=== PATIENT | male | born 1950 | race Caucasian/White ===

== ENCOUNTER 2019-07-21 20:42 | Observation (INO) | payer MEDICARE ==
[~2019-07-21] VITALS: Ht 167.6 cm; Wt 88.1 kg
--- NOTE | 2019-07-21 21:05 | NUR ---
PATIENT ARRIVES WITH TRANSPORTERS VIA WHEELCHAIR, IS ABLE TO WALK TO HIS BED ICU BED 5 WITHOUT DIFFICULTY. DEIES CHEST PAIN. NO SOB NOTED. NO OTHER COMPLAINTS. ALERT AND ORIENTED X4. ON RA. AFEBRILE. ANSWRES ALL QUESTIONS FOLLOWS ALL COMMANDS. ADMISSION COMPLETED. POC FOR TONIGHT DISCUSSED, PATIENT AGREES. SELF REPOSITIONS. RFA 18 G INTACT AND FLUSHES, SALINE LOCKED. NKA. AMBULATORY. SELF REPOSITIONS NEEDED. CALL LIGHT WITHIN REACH. WILL CONTINUE TO MONITOR.
[2019-07-21 21:15] VITALS: BP 177/84
[2019-07-21 21:30] VITALS: BP 172/85
[2019-07-21 21:45] VITALS: BP 184/88
[2019-07-21 22:00] VITALS: BP 166/88
--- NOTE | 2019-07-21 22:11 | NUR ---
SPOKE TO ON THE PHONE TO ASK FOR CURRENT LIST OF MEDS, MEDS TOLD OVER PHONE AND LIST WRITTEN DOWN.
[2019-07-21] MEDS ORDERED: ASPIRIN81 MG PO (22:12)
[2019-07-21] MEDS ORDERED: TOPROL XL25 MG PO (22:13)
[2019-07-21] MEDS ORDERED: LISINOPRIL10 MG PO (22:14)
[2019-07-21] MEDS ORDERED: METFORMIN850 MG PO (22:14)
[2019-07-21 22:15] VITALS: BP 176/74
[2019-07-21] MEDS ORDERED: CIALIS10 M1 PO (22:15)
[2019-07-21] MEDS ORDERED: FLONASE SE27.5 MCG/S (22:16)
[2019-07-21] MEDS ORDERED: JANUVIA50 MG PO (22:17)
[2019-07-21] MEDS ORDERED: PROTONIX40 M2 PO (22:17)
[2019-07-21] MEDS ORDERED: SIMVASTATIN20 MG PO (22:17)
[2019-07-21] MEDS ORDERED: NOVOLIN 70/30 INNLT SC (22:18)
[2019-07-21] MEDS ORDERED: TESSALON PERLE100 MG PO (22:19)
--- NOTE | 2019-07-21 22:36 | NUR ---
CALLED AND SPOKE TO DR SHEETS TO NOTIFY OF PATIENT'S BP'S, BS, AND HOME MEDICATIONS, NEW ORDERS RECEIVED.
--- NOTE | 2019-07-21 22:55 | NUR ---
PATIENT WEIGHED ON STANDING SCALE. BP 190/119 MMHG, MONITOR ALARMS, PATIENT COMMENTS, "HAVE YOU SEEN MY BLOOD PRESSURE, YOUR NOT PAYING ATTENTION TO IT," AFTER I HAD EXPLAINED TO HIM I HAVE SPOKEN TO THE DR ALREADY AND RECEIVED NEW ORDERS FOR MEDICATIONS REGARDING HIS BLOOD PRESSURE AND BLOOD SUGAR.
[2019-07-21 23:00] VITALS: BP 191/95
--- NOTE | 2019-07-21 23:00 | NUR ---
PATIENT GETS UP FROM BED, HAS TAKEN TELEMETRY, PULSE OX, AND BP CUFF OFF. IS CONFUSED. PATIENT REORIENTED AND REASSURED. GOES TO THE BATHROOM, WASHES HER TEETH. LAYS BACK IN BED. COMPLAINS ABOUT MONITOR ALARMING, BATHROOM LIGHT ON. HAVE EXPLAINED TO WHY THE MONITOR IS ALARMING. CALL LIGHT WITHIN REACH.
--- NOTE | 2019-07-21 23:42 | NUR ---
BP MEDIACTION GIVEN TO PATIENT EXPLAINED WHY HE IS GETTING MEDIACTIION AND EXPLAINED TO HIM AGAIN I HAVE SPOKEN TO DR SHEETS ABOUT HIS BP AND CURRENT ORDERS.
[2019-07-22] VITALS (7 sets, daily range): BP systolic 136–164; BP diastolic 71–80
--- NOTE | 2019-07-22 02:01 | NUR ---
PATIENT TECHNICAL PLANNER LIGHT, REQUESTS ANOTHER BLANKET, WARM BLANKET PROVIDED. URINAL EMPTIED. URINE IS YELLOW AND CLEAR, NO MAL ODOR.
--- NOTE | 2019-07-22 04:10 | NUR ---
[employer]OCK NUTRITIONIST ABLE TO DRAW BLOOD WORK. PATIENT LAYS IN BED, AWAKE, NO COMPLAINTS, AFEBRILE. NO NEEDS T THIS TIME. CALL LIGHT WITHIN REACH.
[2019-07-22 05:18] LABS: HEMATOCRIT 42.1 % (39.0-50.0); IMMATURE GRANULOCYTES 0.5 % (0.0-5.0); MEAN CELL VOLUME 88.1 fL CALC (80.0-100.0); MEAN CORPUSCULAR HGB 29.3 pG CALC (26.0-32.0); MEAN CORPUSCULAR HGB CONC 33.3 g/L CALC (32.0-36.0); NEUT# 3.47 thou/uL (1.82-7.42); RED BLOOD COUNT 4.78 mill/uL (4.70-6.10); RED CELL DISTRI WIDTH 14.6 % (11.5-15.5)
[2019-07-22 05:37] LABS: ALBUMIN 4.2 g/dL (3.2-5.0); ALKALINE PHOSPHATASE 86 u/l (38-126); ANION GAP 16 (6-22 (CALC)); BILIRUBIN, TOTAL 0.6 mg/dL (0.0-1.4); BUN 15 mg/dL (8-23); BUN/CREATININE RATIO 16 (12-20 (CALC)); CALCULATED LDLCHOLESTEROL 42 mg/dL (62-129 (CALC)); CARBON DIOXIDE 24 mmol/l (22-30); CHLORIDE 104 mmol/l (95-108); CHOLESTEROL HDL RATIO 4.2 (<4.4 (CALC)); GFR > 60 ML/MIN (>=60 (CALC)); GFR FOR AFR.AMER. > 60 ML/MIN (>=60 (CALC)); HDL CHOLESTEROL 24 mg/dL (>=40); SGOT/AST 44 u/l (19-48); SODIUM 140 mmol/l (137-146); TOTAL CHOLESTEROL 100 mg/dl (0-199); TOTAL TRIGLYCERIDES 172 mg/dl (30-149); VLDL CHOLESTROL 34 mg/dl (4-45 (CALC))
--- NOTE | 2019-07-22 05:51 | NUR ---
PATIENT WATCHES TV. NO COMPLAINTS OF CHEST PAIN. REQUESTS MORE ICED WATER, URINAL EMPTIED. WHEN ASKED IF HE NEEDS ANYTHING ELSE, HE STATES, "JUST GET ME A DOCTOR AND GET ME THE HELL OUT OF HERE." EXPLAINED TO PT WILL BE MAKING HIS ROUNDS THIS MORNING. WILL CONTINUE TO MONITOR.
--- NOTE | 2019-07-22 07:00 | NUR ---
PT RESTING IN BED AWAKE. PT IS ALERT AND ORIENTED X3. SHIFT ASSESSMENT COMPLETED AT THIS TIME. IV PATENT X1. CALL LIGHT IN REACH. WILL CONTINUE TO MONITOR
--- NOTE | 2019-07-22 07:45 | NUR ---
PT SET UP FOR AM MEAL
--- NOTE | 2019-07-22 09:30 | NUR ---
DR MÁRQUEZ AT BEDSIDE AT THIS TIME.
--- NOTE | 2019-07-22 09:45 | NUR ---
IV site discontinued, cath intact. No edema , no redness, voices no discomfort.
--- NOTE | 2019-07-22 09:55 | NUR ---
DISCHARGE INSTRUCTIONS REVIEWED WITH PATIENT. PATIENT VERALIZED UNDERSTANDING.
--- NOTE | 2019-07-22 10:00 | NUR ---
Discharge instructions given. Patient verbalizes understanding of same. Discharged in stable condition via Wheelchair to Home with spouse. All belongings sent with pt.
== END 2019-07-22 10:00 | disposition home or self-care (01) ==
LOC: ICU 20:42
PROVIDERS: ADMIT Internal Medicine; ATTEND Internal Medicine
DX: R07.9 Chest pain, unspecified (principal); I25.10 Atherosclerotic heart disease of native coronary artery without angina pectoris; I10 Essential (primary) hypertension; E11.9 Type 2 diabetes mellitus without complications; Z79.4 Long term (current) use of insulin; Z95.5 Presence of coronary angioplasty implant and graft

== ENCOUNTER 2020-11-07 06:48 | Day surgery (SDC) | payer MEDICARE ==
[~2020-11-07 06:48] MED LIST: ASPIRIN81 MG PO; B-12100 MCG PO; CIALIS10 MG PO; FLONASE SE27.5 MCG/S; IRON (FERROUS S50 MG PO; JANUVIA50 MG PO; JARDIANCE25 MG PO; LISINOPRIL10 MG PO; METFORMIN850 MG PO; MULTIVIT PO; NOVOLIN 70/30 INNLT SC; PROTONIX40 M2 PO; SIMVASTATIN20 MG PO; TESSALON PERLE100 MG PO; TOPROL XL25 MG PO; VITAMI16 PO; VITAMIN D320 MCG PO; [UNRECOGNIZED DRUG - OTHER] PO
[2020-11-07 08:52] VITALS: BP 122/74
--- NOTE | 2020-11-07 15:20 | NUR ---
PER PHYSICIAN, ADVISED PATIENT OF COLONOSCOPY RESULTS, REPEAT X 3 YEARS, USE GOLYTELY PREP FOR FUTURE COLONOSCOPIES. PATIENT AGREED WITH INFORMATION GIVEN, STATED DOING WELL FOLLOWING PROCEDURE, NO CONCERNS VOICED AT TIME OF CALL, AND WILL FOLLOW UP WITH PCP. REPORT AND NOTE FORWARDED TO PCP FOR CONTINUITY OF CARE.
== END 2020-11-07 09:10 | disposition home or self-care (01) ==
LOC: ENDO 06:48 → ORM 12:15 → ENDO 12:15 → ORM 13:30
PROVIDERS: ATTEND Surgery
PROC: 0DJD8ZZ Inspection of Lower Intestinal Tract, Via Natural or Artificial Opening Endoscopic (ICD-10-PCS; principal; 2020-11-07)
DX: Z12.11 Encounter for screening for malignant neoplasm of colon (principal); K64.8 Other hemorrhoids; E11.9 Type 2 diabetes mellitus without complications; Z79.4 Long term (current) use of insulin; Z86.010 Personal history of colon polyps

== ENCOUNTER 2021-03-22 22:00 | Observation (INO) | payer MEDICARE ==
[~2021-03-22] VITALS: Ht 167.6 cm; Wt 92.0 kg
[2021-03-22 22:00] VITALS: BP 150/81
[2021-03-22] MEDS ORDERED: CLOPIDOGREL75 MG PO (22:22)
[2021-03-23 00:02] VITALS: BP 118/63
[2021-03-23 04:02] VITALS: BP 118/52
[2021-03-23 05:44] LABS: HEMOGLOBIN 12.5 g/dl (14.0-18.0); IMMATURE GRANULOCYTES 0.4 % (0.0-5.0); MEAN CELL VOLUME 91.3 fL CALC (80.0-100.0); MEAN CORPUSCULAR HGB 31.9 pG CALC (26.0-32.0); MEAN CORPUSCULAR HGB CONC 34.9 g/dL CAL (32.0-36.0); NEUT# 6.37 thou/uL (1.82-7.42); RED BLOOD COUNT 3.92 mill/uL (4.70-6.10); RED CELL DISTRI WIDTH 13.4 % (11.5-15.5)
[2021-03-23 05:52] LABS: HEMATOCRIT 35.8 % (39.0-50.0)
[2021-03-23 06:05] LABS: ALBUMIN 3.7 g/dL (3.2-5.0); BILIRUBIN, TOTAL 0.8 mg/dL (0.0-1.4); CREATININE 1.5 mg/dL (0.7-1.3); POTASSIUM 4.2 mmol/l (3.5-5.1); TOTAL PROTEIN 6.4 g/dL (6.3-8.2)
[2021-03-23 07:20] VITALS: BP 128/62
[2021-03-23 11:31] VITALS: BP 130/72
== END 2021-03-23 12:20 | disposition home or self-care (01) ==
LOC: MS2 22:00
PROVIDERS: ADMIT Hospitalist; ATTEND Hospitalist
DX: R55 Syncope and collapse (principal); I95.9 Hypotension, unspecified; I12.9 Hypertensive chronic kidney disease with stage 1 through stage 4 chronic kidney disease, or unspecified chronic kidney disease; E11.22 Type 2 diabetes mellitus with diabetic chronic kidney disease; N18.30 Chronic kidney disease, stage 3 unspecified; I25.10 Atherosclerotic heart disease of native coronary artery without angina pectoris; I48.91 Unspecified atrial fibrillation; E78.5 Hyperlipidemia, unspecified; K21.9 Gastro-esophageal reflux disease without esophagitis; M19.90 Unspecified osteoarthritis, unspecified site; G47.30 Sleep apnea, unspecified; Z95.5 Presence of coronary angioplasty implant and graft; Z95.828 Presence of other vascular implants and grafts; Z79.01 Long term (current) use of anticoagulants; Z79.02 Long term (current) use of antithrombotics/antiplatelets; Z79.4 Long term (current) use of insulin; Z87.891 Personal history of nicotine dependence; Z20.822 Contact with and (suspected) exposure to COVID-19
CPT/HCPCS: G0378; G0379